=== PATIENT | female | born 1965 | race Caucasian/White ===

== ENCOUNTER → 2017-02-26 | Outpatient (CLI) | payer OTHER ==
[~2017-02-26] MED LIST: ALBUTEROL17 GM INH; PREDNISONE5 M1 PO; ZITHROMAX PO
--- NOTE | ~2017-02-26 | MY24 ---
[facility] A Service of [facility] & [facility] / [facility] RADIOLOGY TEXT RESULTS PATIENT: ERMIAS ALVARADO LOCATION: [facility] : [birth year] UNIT #: [id number] AGE: [address]: Deepika Younger MD SEX: F ORDER DR: [id number] [facility] [address] [place], [place] [address] [id number] O MR#: [id number] Acc #: [id number] NAME: ERMIAS ALVARADO : 1965 SEX: F STUDY DATE/TIME: 02/26/2017 8:52 UNIT: [facility] ROOM: STUDY DESCRIPTION: ADELFO ACEVEDO W/ CAD UNI LT Attending Physician: Deepika Younger M.D. Referring Physician: Deepika Younger M.D. Ordering Physician: Deepika Younger M.D. Primary Care Physician: Deepika Younger M.D. MEDICAL IMAGING REPORT This report is preliminary unless electronic signature is present EXAM Left digital diagnostic mammogram, 02/26/2017 HISTORY 51-year-old female with 6-month followup for a stereotactic biopsy. FINDINGS CC, MLO, ML, exaggerated CC views of the left breast were obtained. The background breast parenchyma consists of scattered fibroglandular densities. The small area of microcalcifications is smaller than on the prior mammogram after stereotactic biopsy. There is a biopsy clip in this region. No associated mass or architectural distortion. Well-circumscribed nodule in the upper outer quadrant of the left breast is consistent with a small lymph node. This is unchanged from prior studies. Exam is compared to prior mammogram dated 09/10/2016, 09/04/2016, 08/16/2016, 11/04/2014 and 07/09/2013. IMPRESSION Benign mammogram. RECOMMENDATIONS Return to annual screening mammogram. Next mammogram is due in August 2017. Patients over the age of 40 are entered into a reminder system with target due date for the next mammogram. A result letter will also be sent to the patient. BIRADS: [address] [facility] A Service of [facility] & [facility] / [facility] RADIOLOGY TEXT RESULTS PATIENT: ERMIAS ALVARADO LOCATION: [facility] : [birth year] UNIT #: [id number] AGE: [address]: Deepika Younger MD SEX: F ORDER DR: Dictated by... Timmy Grant M.D. THIS IS AN ELECTRONICALLY VERIFIED REPORT Timmy Grant M.D. at 04/07/2017 7:04 AM Vanessa TD: 02/26/2017 11:11 JOB #: [id number] MEDICAL IMAGING REPORT Page 1 of 1 COPY
== END | disposition home or self-care (01) ==
LOC: CMAM 08:24
DX: R92.8 Other abnormal and inconclusive findings on diagnostic imaging of breast (principal)
CPT/HCPCS: G0206